=== PATIENT | male | born 1975 | race Caucasian/White ===

== ENCOUNTER 2020-04-08 19:51 | Emergency (ER) | payer MEDICAID ==
[~2020-04-08] VITALS: Ht 172.7 cm; Wt 102.5 kg
[2020-04-08 20:00] VITALS: BP_SYST 194
--- NOTE | 2020-04-08 20:00 | NUR ---
PT TO REMAIN IN ER LOBBY, NO ER BED AVAILABLE AT THIS TIME
--- NOTE | 2020-04-08 20:05 | NUR ---
PT AAO AND AMBULATORY REPORTING HIGH BLOOD PRESSURE TODAY WITH DIZZINESS. PT IS ANXIOUS AND STATED THAT HE OMITTED TAKING ONE OF HIS BP MEDS TODAY BECAUSE HE WAS DIZZY.PT DENIES ANY PAIN.
--- NOTE | 2020-04-08 21:02 | NUR ---
DR. GIRON TO TRIAGE TO EVALUATE PT STATUS
[2020-04-08 21:43] LABS: EOSINOPHILS # (AUTO) 0.1 K/uL (0.0-0.4); EOSINOPHILS % (AUTO) 0.8 % (0.0-4.0); LYMPHOCYTES # (AUTO) 2.4 K/uL (1.0-5.5); MONOCYTES # (AUTO) 0.5 K/uL (0.0-1.0)
[2020-04-08 21:45] LABS: BASOPHILS # (AUTO) 0.1 K/uL (0.0-0.2); BASOPHILS % (AUTO) 0.6 % (0.0-2.0); HEMATOCRIT 44.9 % (36-54); HEMOGLOBIN 15.8 g/dL (14.0-18.0); LYMPHOCYTES % (AUTO) 27.7 % (20.5-51.5); MEAN CORPUSCULAR HEMOGLOBIN 31 pg (27-31); MEAN CORPUSCULAR HGB CONC 35 % (32-36); MEAN CORPUSCULAR VOLUME 88 fL (79.0-98.0); NEUTROPHILS # (AUTO) 5.5 K/uL (1.8-7.7); NEUTROPHILS % (AUTO) 64.9 % (40.0-70.0); PLATELET COUNT (AUTO) 232 K/uL (130-430); RED BLOOD CELL COUNT(AUTO) 5.13 MIL/uL (4.2-6.2); RED CELL DISTRIBUTION WIDTH 13.8 % (9.0-15.0); WHITE BLOOD COUNT (AUTO) 8.5 K/uL (4.8-10.8)
--- NOTE | 2020-04-08 22:00 | NUR ---
BP RECHECK 162/104
[2020-04-08 22:19] LABS: BILIRUBIN,URINE NEGATIVE (NEGATIVE); BLOOD, URINE NEGATIVE (NEGATIVE); CLARITY/URINE CLEAR (CLEAR); COLOR,URINE YELLOW (YELLOW); GLUCOSE,URINE NEGATIVE (NEGATIVE); KETONES,URINE NEGATIVE (NEGATIVE); LEUKOCYTE ESTERASE ,URINE NEGATIVE (NEGATIVE); NITRITE, URINE NEGATIVE (NEGATIVE); PH,URINE 5.5 (5.0-8.0); PROTEIN URINE NEGATIVE (NEGATIVE); UROBILINOGEN,URINE 0.2 (0.2-1.0)
[2020-04-08 22:50] LABS: CALCIUM 9.6 mg/dL (8.4-11.0); CREATININE 0.96 mg/dL (0.55-1.30); POTASSIUM 4.1 mmol/L (3.5-5.1)
[2020-04-08 22:51] LABS: ALBUMIN 4.4 g/dL (3.4-4.8); TOTAL BILIRUBIN 0.4 mg/dL (0.0-1.0)
--- NOTE | 2020-04-08 23:38 | NUR ---
BP RECHECK 144/94
[2020-04-09] MEDS: MECLIZINE HCL 25 MG TABLET (ANITVERT) PO ONE (00:20)
[2020-04-09 00:52] VITALS: BP_SYST 140
--- NOTE | 2020-04-09 00:52 | NUR ---
Patient given written and verbal discharge instructions and verbalizes understanding. ER MD GIRON discussed with patient the results and treatment provided. Patient in stable condition. ID arm band removed. Rx of MECLIZINE given. Patient educated on pain management and to follow up with PMD. Pain Scale 0/10. Opportunity for questions provided and answered. Medication side effect fact sheet provided.
== END 2020-04-09 00:52 | disposition home or self-care (01) ==
LOC: SED 19:51
DX: R42 Dizziness and giddiness (principal); I10 Essential (primary) hypertension
CPT/HCPCS: 36415; 70450; 76376; 80053; 81003; 84484; 85025; 93005; 99285; J8597